=== PATIENT | male | born 1935 | race Caucasian/White ===

== ENCOUNTER 2021-03-20 14:40 | Outpatient (CLI) | payer MEDICARE, SELFPAY ==
--- NOTE | 2021-03-20 15:00 | USCV_ITS ---
Armin Morel Age: 85 Gender: M : 1935 Exam Date: 03/20/2021 15:21 Ordering Phys: Casi Lincoln APN Technologist: Rocio Hedrick Exam Location: [facility] – [place] Indication: right leg pain HISTORY: right leg pain, diabetes PROCEDURES: Venous duplex imaging was performed in only the right lower extremity. The following venous structures were evaluated: common femoral vein, profunda vein, proximal portion of the greater saphenous vein, superficial femoral vein, and the popliteal vein. In addition, the posterior tibial and peroneal trunk were evaluated. FINDINGS: Normal 2-D Doppler and augmentation and compressibility throughout the lower extremity venous structures. Additional imaging through the proximal calf veins also reveals no thrombus. Limited evaluation of the greater saphenous vein is patent with no thrombus. CONCLUSIONS No DVT right lower extremity. Dr. Danielle Sharp DO (Electronically Signed) Final Date: 20 March 2021 15:50 S
== END 2021-03-20 14:41 | disposition home or self-care (01) ==
PROVIDERS: PCP Nurse Practitioner Family; Visit Provider Nurse Practitioner Family
DX: M79.604 Pain in right leg (principal)
CPT/HCPCS: 93971

== ENCOUNTER 2021-03-22 12:52 | Outpatient (CLI) | payer MEDICARE, SELFPAY ==
--- NOTE | 2021-03-22 12:57 | USCV_ITS ---
Armin Morel Age: 85 Gender: M : 1935 Exam Date: 03/22/2021 13:27 Ordering Phys: Casi Lincoln MANAGER MILITARY Technologist: Leticia Sutherland [place] [facility] [place]: RLE PAIN Risk Factors: Previous Vascular Surgery: RIGHT LEFT BP: 120.0 / BP: 125.0/ 0 0 Waveform Velocity (cm/s) Velocity (cm/s) Waveform Triphasic 93.3 Iliac Prox Triphasic Triphasic 79.2 Iliac Mid Triphasic Iliac Distal 103.9 Triphasic 111.7 CLAY HOISTER Triphasic 103.9 SFA Prox Triphasic 111.7 SFA Mid Triphasic 98.1 SFA Dist Triphasic 75.9 POP Triphasic 61.0 [employer] Triphasic 70.1 DPA 1.2 ILIANA FINDINGS Polyphasic waveforms throughout the right lower extremity arteries Normal Doppler flow velocities Normal resting ILIANA of 1.2 Intimal thickening and minimal plaques in the iliac, femoral and popliteal arteries CONCLUSIONS 1. No significant arterial obstruction on the right side, based on the above findings. 2. Minimal plaques with intimal thickening in the iliac, femoral and popliteal arteries on the right side Dr Clari Rivers MD [facility] (Electronically Signed) Final Date: 22 March 2021 22:05 S
== END 2021-03-22 12:53 | disposition home or self-care (01) ==
PROVIDERS: PCP Nurse Practitioner Family; Visit Provider Nurse Practitioner Family
DX: M79.604 Pain in right leg (principal)
CPT/HCPCS: 93926

== ENCOUNTER 2021-06-06 13:54 | Outpatient (CLI) | payer MEDICARE, SELFPAY ==
[2021-06-06 14:16] VITALS: BP 120/73; PULSE 61; RESP 18; TEMP 36.6; O2SAT 96; BMI 22.8
[2021-06-06 14:38] VITALS: BP 109/70; PULSE 53; RESP 16; TEMP 36.2; O2SAT 95
[2021-06-06 15:25] VITALS: BP 109/70; PULSE 53; RESP 16; TEMP 36.2; O2SAT 95
[2021-06-06 16:24] VITALS: BP 117/71; PULSE 61; RESP 14; TEMP 36.6; O2SAT 97
== END 2021-06-06 13:55 | disposition home or self-care (01) ==
PROVIDERS: PCP Nurse Practitioner Family; Visit Provider Nurse Practitioner Family
DX: U07.1 COVID-19 (principal)
CPT/HCPCS: 96365

== ENCOUNTER 2022-01-24 14:35 | Outpatient (CLI) | payer MEDICARE, SELFPAY ==
--- NOTE | 2022-01-24 14:44 | USCV_ITS ---
Cathy Morel Age: 86 Gender: M : 1935 Exam Date: 01/24/2022 14:51 Ordering Phys: Cooper Ramirez M.D ([email or web address]) Technologist: YONATAN [place] [facility] [place]: CARDIAC MURMUR BP: 146 / 75 HR: 35 Rhythm: Sinus Technical Quality: Adequate MEASUREMENTS (Male / Female) Normal Values 2D ECHO LV Diastolic Diameter PLAX 4.8 cm 4.2 - 5.9 / 3.9 - 5.3 cm LV Systolic Diameter PLAX 3.3 cm IVS Diastolic Thickness 1.6 cm 0.6 - 1.0 / 0.6 - 0.9 cm IVS Systolic Thickness 1.6 cm LVPW Diastolic Thickness 1.8 cm 0.6 - 1.0 / 0.6 - 0.9 cm LVPW Systolic Thickness 1.7 cm LVOT Diameter 2.0 cm LV Ejection Fraction 2D Teich 57.9 % LV Ejection Fraction MOD 2C 57.0 % LV Ejection Fraction 2C AL 56.1 % LA Diameter 3.2 cm LA Width 4.2 cm LA Height 5.5 cm RA Width 3.5 cm RA Height 4.6 cm Aorta at Sinotubular Diameter 3.0 cm IVC Diameter 1.5 cm M-MODE Aortic Annulus Diameter 3.1 cm LA Ao Ratio MM 1.0 MV E Point Septal Separation 0.8 cm DOPPLER AV Peak Velocity 113.0 cm/s LVOT Peak Velocity 97.0 cm/s AV Area Cont Eq vti 3.1 cm squared AV Area Cont Eq pk 2.8 cm squared MV Peak Velocity 98.0 cm/s MV Area PHT 3.9 cm squared Mitral E to A Ratio 0.8 MV E' Velocity 47.0 cm/s Mitral E to MV E' Ratio 8.9 Mitral E to LV E' Lateral Ratio 8.4 Mitral E to LV E' Septal Ratio 9.5 TR Peak Velocity 216.4 cm/s TR Peak Gradient 18.7 mmHg TR Mean Velocity 152.4 cm/s TR Mean Gradient 10.7 mmHg TR Velocity Time Integral 59.1 cm TV Peak E Velocity 49.0 cm/s Right Atrial Pressure 3.0 mmHg Pulmonary Artery Systolic Pressu 21.7 mmHg PV Peak Velocity 94.0 cm/s RV Acceleration Time 0.1 s RV Ejection Time 0.3 s RV AcT/ET 0.3 FINDINGS Left Ventricle Left ventricle is normal in size. LV systolic function is normal with EF of 55 to 60%. No regional wall motion abnormalities are seen. Grade 1 diastolic dysfunction Right Ventricle Normal in size and function Right Atrium Normal in size Left Atrium Mildly dilated Mitral Valve Mitral valve prolapse is seen. Moderate to severe mitral regurgitation. Aortic Valve Aortic valve is normal structurally. No significant stenosis. Mild aortic regurgitation Tricuspid Valve Mild tricuspid regurgitation. Insufficient TR jet to calculate RVSP Pulmonic Valve Grossly normal. Mild pulmonic regurgitation Pericardium Normal Aorta Normal in size IVC CONCLUSIONS Diastolic function is normal with EF 55 to 60%. Grade 1 diastolic dysfunction. Mild mitral valve prolapse was seen. Moderate to severe mitral regurgitation. Mild aortic regurgitation Mild tricuspid regurgitation Mild pulmonic regurgitation. No comparison studies are available Cooper Ramirez MD (Electronically Signed) Final Date: 01 February 2022 12:49 S
== END 2022-01-24 14:36 | disposition home or self-care (01) ==
PROVIDERS: PCP Nurse Practitioner Family; Visit Provider Internal Medicine
DX: R01.1 Cardiac murmur, unspecified (principal); I08.3 Combined rheumatic disorders of mitral, aortic and tricuspid valves
CPT/HCPCS: 93306

== ENCOUNTER → 2022-05-22 14:47 | Outpatient (BNVA) | payer MEDICARE, SELFPAY | PROVIDERS: PCP Nurse Practitioner Family; Visit Provider Internal Medicine | DX: I34.0 Nonrheumatic mitral (valve) insufficiency (principal); I25.9 Chronic ischemic heart disease, unspecified; I10 Essential (primary) hypertension; E78.5 Hyperlipidemia, unspecified; E11.69 Type 2 diabetes mellitus with other specified complication; Z79.84 Long term (current) use of oral hypoglycemic drugs; I25.10 Atherosclerotic heart disease of native coronary artery without angina pectoris; I25.5 Ischemic cardiomyopathy | CPT/HCPCS: 99214 ==